=== PATIENT | female | born 1995 | race Caucasian/White ===

== ENCOUNTER 2020-04-28 19:40 | Emergency (ER) | payer OTHER, SELFPAY ==
[2020-04-28 19:42] VITALS: BP 119/75; PULSE 98; RESP 12; TEMP 36.8; O2SAT 98
--- NOTE | 2020-04-28 20:09 | ED.GENADULT ---
HPI - General Adult General Chief complaint: Unspecified Stated complaint: pelvic pain after a plan B Time Seen by Provider: 04/28/20 19:56 History of Present Illness HPI narrative: She had a medication induced 3 weeks ago. Following that she had vaginal bleeding for about 1 week. She also had cramping which continues to happen. Then vaginal dryness and pain. Now fr the past few days she has begun having a small amount of abnormal discharge. No fever. Related Data Allergies Allergy/AdvReac Type Severity Reaction Status Date / Time No Known Allergies Allergy Unknown Verified 04/28/20 19:45 Review of Systems Review of Systems: All systems reviewed & are unremarkable except as noted in HPI and below Constitutional: Constitutional: Denies fever(s) Cardiovascular: Cardiovascular: Denies chest pain Respiratory: Respiratory: Denies dyspnea Gastrointestinal: Gastrointestinal: Reports abdominal pain, Denies constipation, Denies diarrhea, Denies nausea and Denies vomiting Genitourinary: Genitourinary: Denies hematuria and Denies dysuria [facility] Past Medical History Medical History (Updated 04/29/20 @ 00:26 by Serafin Everett MD) Medical Social History Social History (Updated 04/29/20 @ 00:26 by Serafin Everett MD) Smoking status: Never smoker Gender identity (if verbalized by the patient): Female Exam Const: General: healthy appearing, no acute distress and alert Orientation/consciousness: patient oriented x3 HENMT: Head: normal to inspection Resp: Effort & Inspection: normal respiratory effort Auscultation: clear to auscultation bilaterally Cardio: Rate: regular rate Rhythm: regular rhythm GI: GI Palp: Yes Soft to palpation and No Tenderness to palpation present (GI) : Speculum Exam - Vagina: normal appearance of the vagina, abnormal vaginal discharge palacios and No vaginal bleeding Speculum Exam - Cervix: normal appearance of the cervix Bimanual exam- vagina & uterus: no cervical motion tenderness Skin: General skin exam: normal color Neuro: General: patient oriented x3 and moves all extremities Speech: normal speech Gait exam (Neuro): Normal gait present Extrem: General: normal to inspection Course Vital Signs Vital signs: Vital Signs Temperature 36.8 C 04/28/20 19:42 Pulse Rate 98 04/28/20 19:42 Respiratory Rate 12 04/28/20 19:42 Blood Pressure 119/75 04/28/20 19:42 Pulse Oximetry 98 04/28/20 19:42 Temperature 36.9 C 04/28/20 20:31 Pulse Rate 90 04/28/20 21:42 Respiratory Rate 16 04/28/20 21:42 Blood Pressure 131/87 04/28/20 21:42 Pulse Oximetry 100 04/28/20 21:42 Medical Decision Making MDM Narrative Medical decision making narrative: She has a small amount of palacios discharge. I will test and treat her for STDs. Mild elevation of bHcg. Case discussed with Dr. Sandoval. She can follow-up her in clinic. Medical Records Medical records reviewed: Yes I reviewed the patient's medical records. Vital Signs Vital Signs: Vital Signs Temperature 36.8 C 04/28/20 19:42 Pulse Rate 98 04/28/20 19:42 Respiratory Rate 12 04/28/20 19:42 Blood Pressure 119/75 04/28/20 19:42 Pulse Oximetry 98 04/28/20 19:42 Temperature 36.9 C 04/28/20 20:31 Pulse Rate 90 04/28/20 21:42 Respiratory Rate 16 04/28/20 21:42 Blood Pressure 131/87 04/28/20 21:42 Pulse Oximetry 100 04/28/20 21:42 Lab Data Lab results reviewed: Yes I reviewed the patient's lab results. Result diagrams: 04/28/20 20:14 04/28/20 20:14 Labs: Lab Results 04/28/20 04/28/20 04/28/20 Range/Units 20:14 20:14 20:42 WBC 8.0 (4.5-10.0) K/mm3 RBC 4.35 (4.2-5.4) M/mm3 Hgb 13.5 (12.0-15.0) g/dL Hct 40.3 (37.0-47.0) % MCV 92.6 (80-100) fl MCH 31.0 (26-34) pg MCHC 33.5 (32-36) g/dl RDW 12.5 (11.5-14.5) % Plt Count 361 (150-375) k/mm3 MPV 8.6 (7.4-10.4) fl Immature G
[2020-04-28 20:21] LABS: Basophils Percent Auto 0.5 % (0.2-1.2); Eosinophils Absolute Auto 0.1 K/mm3 (0-0.3); Eosinophils Percent Auto 1.8 % (0-4.4); Hematocrit 40.3 % (37.0-47.0); Hemoglobin 13.5 g/dL (12.0-15.0); Immature Granulocyte Absolute 0.01 K/mm3 (0.00-0.031); Immature Granulocyte Percent A 0.1 % (0-0.5); Lymphocytes Absolute Auto 2.66 K/mm3 (0.9-3.2); Lymphocytes Percent Auto 33.3 % (18.3-44.2); Mean Corpuscular HGB Conc 33.5 g/dl (32-36); Mean Corpuscular Volume 92.6 fl (80-100); Mean Platelet Volume 8.6 fl (7.4-10.4); Monocytes Absolute Auto 0.6 K/mm3 (0.1-0.6); Monocytes Percent Auto 7.1 % (2.6-8.5); Neutrophils Absolute Auto 4.6 K/mm3 (1.3-6.7); Neutrophils Percent Auto 57.2 % (45.5-73.1); Platelet Count Result 361 k/mm3 (150-375); Red Blood Count 4.35 M/mm3 (4.2-5.4); Red Cell Distribution Width 12.5 % (11.5-14.5)
[2020-04-28 20:31] VITALS: BP 129/94; PULSE 98; RESP 20; TEMP 36.9; O2SAT 97
[2020-04-28 20:33] LABS: Alanine Aminotransferase 14 U/L (4-35); Albumin Level 4.6 g/dL (3.5-5.1); Alkaline Phosphatase 75 U/L (38-126); Anion Gap 10 mmol/L (8-16); Aspartate Amino Transferase 18 U/L (14-36); Bilirubin,Total 1.2 mg/dL (0.2-1.3); Blood Urea Nitrogen 5 mg/dL (7-17); Carbon Dioxide 25 mmol/L (22-30); Chloride 102 mmol/L (98-107); Estimated Glomerular Filt Rate > 60; Glucose 93 mg/dL (65-105); Potassium 3.9 mmol/L (3.4-5.0); Sodium 137 mmol/L (137-145)
[2020-04-28 20:50] LABS: Add Urine Microscopic? NO; Appearance Urine Clear (Clear); Bilirubin Urine Negative (Negative); Blood Urine Negative (Negative); Color Urine Straw (Yellow); Glucose Urine UA Negative (Negative); Ketones Urine Negative (Negative); Leukocyte Esterase Ur Negative LEU/UL (Negative); Nitrate Urine Negative (Negative); Protein Urine Negative (Negative); Urobilinogen Urine Negative mg/dL (<2.0)
[2020-04-28 20:51] LABS: Beta HCG Quantitative 240.72 mIU/ML
[2020-04-28] MEDS: cefTRIAXone 250 MG VIAL IM (21:40)
[2020-04-28] MEDS: AZITHROMYCIN 250 MG TABLET 1000 MG PO (21:40)
[2020-04-28] MEDS: metroNIDAZOLE 250 MG TABLET 2000 MG PO (21:41)
--- NOTE | 2020-04-28 21:41 | PC.NURSE ---
used lido to reconstitute rocephin
[2020-04-28 21:42] VITALS: BP 131/87; PULSE 90; RESP 16; O2SAT 100
== END 2020-04-28 21:44 | disposition home or self-care (01) ==
PROVIDERS: Emergency Provider Emergency Medicine
DX: R10.2 Pelvic and perineal pain (principal); N89.8 Other specified noninflammatory disorders of vagina
CPT/HCPCS: 36415; 80053; 81003; 81025; 84702; 85025; 86850; 86880; 86900; 86901; 86902; 87491; 87591; 87808; 96372; 99284; A9270; J0696

== ENCOUNTER 2021-02-23 12:49 | Outpatient (RCR) | payer OTHER, SELFPAY ==
[2021-02-23 14:16] LABS: Hematocrit 33.1 % (37.0-47.0); Hemoglobin 10.7 g/dL (12.0-15.0)
[2021-02-23 14:28] LABS: Glucose 1 Hour PP 50gm Dose 85 mg/dL
[2021-02-23 15:08] LABS: HIV 1/2 Ab P24 Ag Result Negative (Negative)
[2021-02-25] MEDS: RHO(D) IMMUNE GLOBULIN 300 MCG/2 ML SYRINGE IM (14:31)
== END 2021-05-24 23:59 | disposition home or self-care (01) ==
LOC: ANHLAB 12:49
PROVIDERS: Visit Provider Obstetrics & Gynecology
DX: Z11.4 Encounter for screening for human immunodeficiency virus [HIV] (principal); Z29.13 Encounter for prophylactic Rho(D) immune globulin; O36.0120 Maternal care for anti-D [Rh] antibodies, second trimester, not applicable or unspecified; Z3A.00 Weeks of gestation of pregnancy not specified
CPT/HCPCS: 36415; 82947; 85014; 85018; 85461; 86703; 90384; 96372; G0432; J2790

== ENCOUNTER 2021-05-01 16:35 | Observation (INO) | payer OTHER, SELFPAY ==
[2021-05-01 17:00] VITALS: TEMP 36.6
--- NOTE | 2021-05-02 08:42 | PM.OBTRLD ---
OB - Triage/Final Diagnosis Visit Information Comments/Additional reasons for admission: I have assessed the risk for this patient, Digan Evangelista Salguero, and determined that she would benefit from observation care. Evaluation Vital signs: Vital Signs - 24 hr 05/01/21 17:00 Temperature 36.6 C Final Diagnosis (1) Back pain affecting : Code(s): O99.891 - Other specified diseases and conditions complicating ; M54.9 - Dorsalgia, unspecified Status: Acute
== END 2021-05-01 18:00 | disposition home or self-care (01) ==
PROVIDERS: Admitting Provider Obstetrics & Gynecology; Visit Provider Obstetrics & Gynecology
DX: O99.891 Other specified diseases and conditions complicating pregnancy (principal); M54.9 Dorsalgia, unspecified; Z3A.00 Weeks of gestation of pregnancy not specified
CPT/HCPCS: G0378; G0379

== ENCOUNTER 2021-05-03 16:43 | Inpatient (IN) | payer OTHER, SELFPAY ==
[2021-05-03] VITALS (7 sets, daily range): BP systolic 101–110; BP diastolic 72–77; PULSE 86–103; RESP 18; TEMP 36.4–36.8; BMI 33.0
--- NOTE | 2021-05-03 17:02 | LDADM ---
This patient, Digna Salguero, was admitted to Labor/Delivery/Recovery 108 on 05/03/21 at 16:43. Plans for labor, pain management and were discussed with patient. Patient/family oriented to hospital policies and general routines including ID bracelet, bed and alarms, visiting hours, pain management, procedures, bathroom and other care routines, personal items, smoking policy, room service/diet and guest tray routines, security routines, and visiting hours. Patient/Family are encouraged to report perceived risks to care and to ask questions if they do not understand what they are told or what they should do. See OBIX for further documentation.
[2021-05-03 17:14] LABS: Basophils Percent Auto 0.2 % (0.2-1.2); Eosinophils Absolute Auto 0.1 K/mm3 (0-0.3); Eosinophils Percent Auto 0.6 % (0-4.4); Hematocrit 31.5 % (37.0-47.0); Hemoglobin 9.9 g/dL (12.0-15.0); Immature Granulocyte Absolute 0.03 K/mm3 (0.00-0.031); Immature Granulocyte Percent A 0.3 % (0-0.5); Lymphocytes Absolute Auto 1.95 K/mm3 (0.9-3.2); Lymphocytes Percent Auto 20.1 % (18.3-44.2); Mean Corpuscular HGB Conc 31.4 g/dl (32-36); Mean Corpuscular Hemoglobin 26.4 pg (26-34); Mean Platelet Volume 9.8 fl (7.4-10.4); Monocytes Absolute Auto 0.6 K/mm3 (0.1-0.6); Neutrophils Absolute Auto 7.1 K/mm3 (1.3-6.7); Neutrophils Percent Auto 72.8 % (45.5-73.1); Platelet Count Result 315 k/mm3 (150-375); Red Blood Count 3.75 M/mm3 (4.2-5.4); Red Cell Distribution Width 13.6 % (11.5-14.5); White Blood Count 9.7 K/mm3 (4.5-10.0)
[2021-05-03] MEDS: DINOPROSTONE 10 MG VAG INSERT VAGINAL (17:34)
[2021-05-03] MEDS: fentaNYL CITRATE INJ (*CRX) 100 MCG/2 ML VIAL 50 MCG IV PUSH (22:39)
[2021-05-04] VITALS (125 sets, daily range): BP systolic 85–129; BP diastolic 50–104; PULSE 66–167; RESP 16–18; TEMP 36.1–37.1; O2SAT 87–100
[2021-05-04] MEDS: ONDANSETRON INJ 4 MG/2 ML VIAL IV PUSH (02:34)
[2021-05-04] MEDS: ACETAMINOPHEN 500 MG TABLET 1000 MG PO ×2 (02:37→09:29)
[2021-05-04] MEDS: OXYTOCIN 30 UNITS/NS 500 ML 30 UNITS/500 ML BAG IV CONT (04:55)
[2021-05-04] MEDS: LACTATED RINGERS 1,000 ML 125 ML IV CONT ×2 (04:55→07:16)
--- NOTE | 2021-05-04 06:52 | WPDANESEPPF ---
Anes - Initial Pre Proc Eval Procedure: labor epidural Date/Time: 05/04/21 06:52 Surgeon: Parish Ocampo MD Pre Op Diagnosis: labor pain Pre Op Diagnosis: Induction of Labor Patient Data Age: 25 Gender: F Height: 1.57 m Weight: 82 kg Last Vital Signs Temp 36.5 C 05/04/21 04:55 Pulse 81 05/04/21 06:52 Resp 18 05/04/21 04:55 BP 110/69 05/04/21 06:52 Pulse Ox 100 05/04/21 06:50 Allergies Allergy/AdvReac Type Severity Reaction Status Date / Time No Known Allergies Allergy Unknown Verified 04/28/20 19:45 Home Medications Medication Instructions Recorded Confirmed Type PNV cmb#95-ferrous fumarate-FA 1 tablet PO DAILY 04/07/21 05/03/21 History [] Laboratory Tests 05/03/21 05/03/21 05/03/21 17:00 17:00 17:00 WBC 9.7 K/mm3 K/mm3 (4.5-10.0) RBC 3.75 M/mm3 L M/mm3 (4.2-5.4) Hgb 9.9 g/dL L g/dL (12.0-15.0) Hct 31.5 % L % (37.0-47.0) MCV 84.0 fl fl (80-100) MCH 26.4 pg pg (26-34) MCHC 31.4 g/dl L g/dl (32-36) RDW 13.6 % % (11.5-14.5) Plt Count 315 k/mm3 k/mm3 (150-375) MPV 9.8 fl fl (7.4-10.4) Immature Gran % (Auto) 0.3 % % (0-0.5) Neut % (Auto) 72.8 % % (45.5-73.1) Lymph % (Auto) 20.1 % % (18.3-44.2) Lane % (Auto) 6.0 % % (2.6-8.5) Eos % (Auto) 0.6 % % (0-4.4) Baso % (Auto) 0.2 % % (0.2-1.2) Lymph # (Auto) 1.95 K/mm3 K/mm3 (0.9-3.2) Lane # (Auto) 0.6 K/mm3 K/mm3 (0.1-0.6) Eos # (Auto) 0.1 K/mm3 K/mm3 (0-0.3) Baso # (Auto) 0.0 K/mm3 K/mm3 (0.0-0.1) Abs Immat Gran (auto) 0.03 K/mm3 K/mm3 (0.00-0.031) Absolute Neuts (auto) 7.1 K/mm3 H K/mm3 (1.3-6.7) Absolute Nucleated RBC 0.0 K/mm3 K/mm3 (0.0-0.012) Nucleated RBC % 0.0 % % (0.0-0.2) RPR Pending Blood Type B Negative Antibody Screen Positive Antibody Identification Passive Due to RH Imm Glob Antigen Identification Cancelled SERGIO, IgG Interpret Not Performed SERGIO, Poly Interpret Negative SERGIO, Complement Interp Not Performed Patient hx anesthesia problems: none Family hx anesthesia problems: none PMFSH Past Medical History Medical History Medical Family History Family History Other No pertinent family history Social History Social History Smoking status: Never smoker Substance use: never Gender identity (if verbalized by the patient): Female Spiritual care concerns: No Anes - Eval Final PreProcedure Day of Procedure 05/04/21 06:52 Patient weight: overweight Heart: regular rate and rhythm Lungs: clear to auscultation and normal air movement Airway: Mallampati scale class II Neurological: alert and oriented ASA classification: II Emergent: no Anesthetic plan: proceed Anesthesia type and monitoring: regional epidural and standard monitoring Informed Consent: The patient's anesthetic plan and its attendant risks and benefits were discussed with the patient/family/POA. Questions were solicited and answers provided to the satisfaction of the patient/family/POA.
[2021-05-04 11:20] LABS: Rapid Plasma Reagin Non-Reactive (NonReactive)
--- NOTE | 2021-05-04 13:08 | WPDHPUPDATE1 ---
History and Physical Update Update Date/Time: 05/04/21 13:08 History and Physical has been reviewed, including an updated exam of the patient. There are NO changes in the patient's condition. Risks, benefits, and alternatives have been discussed and questions answered. Patient agrees to proceed with procedure.
--- NOTE | 2021-05-04 13:08 | WPDOBADMIT ---
Obstetrics - Admit Note Admission Note: record reviewed. No pertinent additions to the history and/or any subsequent changes in the physical findings that are not consistent with the expected course of the were found. Additions to the history and/or subsequent changes in the physical findings follow. None.
--- NOTE | 2021-05-04 13:08 | PM.OBPRVD ---
OB - Delivery Note Procedure Route of delivery: Episiotomy description: None Laceration Description: None Specimen: No Quantitative Blood Loss (ml): 300 Anesthesia type: Epidural Disposition: floor Narrative: Patient prepped and draped in usual manner for this procedure. Maternal expulsive efforts readily delivered vertex and the rest of baby delivered without difficulty. Cord was clamped cut placenta delivered spontaneously. Cervix vagina vulva were inspected no lacerations or tears. Uterus was well contracted no bleeding patient are procedure well. Immediate postop condition mother baby were both excellent. Baby Weeks of gestation at delivery: 39 Infant gender: Female Weight (pounds): 7 Weight (ounces): 10 score one minute: 8 score five minutes: 9
[2021-05-04] MEDS: OXYTOCIN 30 UNITS/NS 500 ML 30 UNITS/500 ML BAG 125 UNITS IV CONT (13:32)
--- NOTE | 2021-05-04 15:42 | OBPPTRN ---
Patient transferred to post room # 282 via wheelchair. Support person present. Oriented to unit, room, information board, rooming in, admission packet and security measures. Patient verbalizes understanding.
[2021-05-04] MEDS: ACETAMINOPHEN 325 MG TABLET 650 MG PO (17:41)
[2021-05-04] MEDS: IBUPROFEN 600 MG TABLET PO (23:10)
[2021-05-05 05:25] LABS: Hematocrit 28.8 % (37.0-47.0); Hemoglobin 8.8 g/dL (12.0-15.0)
[2021-05-05] MEDS: IBUPROFEN 600 MG TABLET PO (07:21)
[2021-05-05] MEDS: DOCUSATE SODIUM 100 MG CAPSULE PO (07:21)
[2021-05-05] MEDS: POLYSACCHARIDE IRON COMPLEX 150 MG CAPSULE PO (07:21)
[2021-05-05] MEDS: ACETAMINOPHEN 325 MG TABLET 650 MG PO (07:22)
[2021-05-05] MEDS: TETANUS,DIPHTHERIA,AC PERTUSSIS ADULT (0.5 ML) BOOSTRIX IM (07:22)
[2021-05-05 08:30] VITALS: BP 93/62; PULSE 73; RESP 16; TEMP 36.3; O2SAT 98
--- NOTE | 2021-05-05 09:47 | WPDANLDPN2 ---
Anes-Prog Note L&D Date/Time: 05/05/21 09:47 Comfortable throughout: labor and delivery Neuraxial method: epidural Epidural/Spinal procedure site: clean & non-tender Neuro status: Neuro function grossly intact. Cardiovascular status: normal Respiratory status: normal Airway patency: baseline Mental status: baseline Post-Op hydration status: normal Vital Signs: Last Vital Signs Temp 36.3 C L 05/05/21 08:30 Pulse 73 05/05/21 08:30 Resp 16 05/05/21 08:30 BP 93/62 L 05/05/21 08:30 Pulse Ox 98 05/05/21 08:30 Pain score (VAS): 3 Post-procedural complaints: none Patient feedback: Patient satisfied with anesthetic care.
[2021-05-05 11:43] VITALS: BP 96/65; PULSE 94; RESP 18; TEMP 36.8; O2SAT 100
[2021-05-05] MEDS: RHO(D) IMMUNE GLOBULIN 300 MCG/2 ML SYRINGE IM (13:33)
--- NOTE | 2021-05-05 13:53 | P.DS_ITS ---
DS: Admitting Diagnosis Admitting Diagnosis OB - DS: Summary OB Procedures : None OB Procedures Intrapartum: Spontaneous Vag Delivery OB Procedures: : None Time Spent with Patient Time attestation: Total time spent providing and/or coordinating discharge services: DS: Data Data Completed and Pending Labs on day of discharge: Labs from last 24 hours 05/05/21 05/05/21 03:16 03:16 Hgb 8.8 L Hct 28.8 L Blood Type B Negative Antibody Screen TNP Screen Negative Baby's Blood Type B pos Baby's SERGIO Negative Doses of RhIg Required 1 Discharge Plan Discharge Discharging Clinician: Parish Ocampo Patient Disposition: Home, Self-Care Activity: as tolerated Diet: as tolerated Patient Instructions: Antibiotic Form Stand Alone Forms: General Discharge Information Follow-up/Referrals: Parish Ocampo MD [Physician] - 3 Weeks Discharge Medications: New ibuprofen 600 mg Tablet 600 mg PO Q6H PRN (Reason: Cramping) Qty: 30 RF: 0 Continued PNV cmb#95-ferrous fumarate-FA [] 28 mg iron- 800 mcg Tablet 1 tablet PO DAILY RF: 0 Date of admission: 05/03/21 16:43 Primary Care Provider: PHYSICIAN,ADDRESS CHANGE CLERK Admitting Provider: Parish Ocampo Attending physician on admission: Parish Ocampo Condition: Stable
[2021-05-06 10:21] VITALS: BP 109/69; PULSE 93; RESP 18; O2SAT 99
== END 2021-05-05 14:46 | disposition home or self-care (01) | DRG 560 ==
LOC: ANHLDR 05-04 15:39 → ANHOB2 05-04 15:46
PROVIDERS: Admitting Provider Obstetrics & Gynecology; Visit Provider Obstetrics & Gynecology
DX: O80 Encounter for full-term uncomplicated delivery (principal); Z37.0 Single live birth; Z3A.39 39 weeks gestation of pregnancy
CPT/HCPCS: 36415; 85014; 85018; 85025; 85461; 86592; 86850; 86880; 86900; 86901; 90384; 90715; A9270; J2405; J2590; J2790; J2795; J3010; J7120

== ENCOUNTER 2023-08-29 12:14 | Outpatient (CLI) | payer OTHER, SELFPAY ==
[2023-08-29 12:30] LABS: Basophils Percent Auto 0.4 % (0.2-1.2); Eosinophils Absolute Auto 0.1 K/mm3 (0-0.3); Eosinophils Percent Auto 2.1 % (0-4.4); Hematocrit 36.4 % (37.0-47.0); Hemoglobin 11.3 g/dL (12.0-15.0); Immature Granulocyte Absolute 0.01 K/mm3 (0.00-0.031); Immature Granulocyte Percent A 0.1 % (0-0.5); Lymphocytes Absolute Auto 2.54 K/mm3 (0.9-3.2); Lymphocytes Percent Auto 37.5 % (18.3-44.2); Mean Corpuscular Volume 80.5 fl (80-100); Mean Platelet Volume 8.3 fl (7.4-10.4); Monocytes Absolute Auto 0.4 K/mm3 (0.1-0.6); Monocytes Percent Auto 6.1 % (2.6-8.5); Neutrophils Absolute Auto 3.6 K/mm3 (1.3-6.7); Neutrophils Percent Auto 53.8 % (45.5-73.1); Platelet Count Result 398 k/mm3 (150-375); Red Blood Count 4.52 M/mm3 (4.2-5.4); Red Cell Distribution Width 16.2 % (11.5-14.5); White Blood Count 6.8 K/mm3 (4.5-10.0)
[2023-08-29 17:04] LABS: Iron 40 ug/dL (37-170)
[2023-08-29 17:11] LABS: Alanine Aminotransferase 128 U/L (6-35); Albumin Level 4.8 g/dL (3.5-5.1); Alkaline Phosphatase 131 U/L (38-126); Anion Gap 9 mmol/L (8-16); Aspartate Amino Transferase 79 U/L (14-36); Bilirubin,Total 0.9 mg/dL (0.2-1.3); Blood Urea Nitrogen 6 mg/dL (7-17); Calcium 9.7 mg/dL (8.4-10.2); Carbon Dioxide 28 mmol/L (22-30); Chloride 103 mmol/L (98-107); Estimated Glomerular Filt Rate > 60; Glucose 88 mg/dL (65-110); Lactate Dehydrogenase 210 U/L (120-246); Potassium 4.2 mmol/L (3.4-5.0); Sodium 140 mmol/L (137-145)
[2023-08-29 17:13] LABS: Percent Iron Saturation 8 % (20-50)
[2023-08-29 17:43] LABS: Ferritin 4.62 ng/mL (6.24-137)
[2023-08-29 18:18] LABS: Folic Acid 9.3 ng/mL (2.76->20)
[2023-09-01 06:43] LABS: Methylmalonic Acid 70 nmol/L (87-318)
[2023-09-04 09:53] LABS: Soluble Transferrin Receptor 1.98 mg/L (0.76-1.76)
== END 2023-08-29 12:15 | disposition home or self-care (01) ==
LOC: ANHLAB 12:15
PROVIDERS: Nurse Practitioner Family; Visit Provider Internal Medicine Hematology & Oncology
DX: D50.0 Iron deficiency anemia secondary to blood loss (chronic) (principal)
CPT/HCPCS: 36415; 80053; 82607; 82728; 82746; 83540; 83550; 83615; 83921; 84238; 85025

== ENCOUNTER 2023-10-24 00:27 | Day surgery (SDC) | payer OTHER, SELFPAY ==
[2023-10-12 15:27] VITALS: BMI 34.2
--- NOTE | 2023-10-12 15:35 | PC.NURSE ---
Report to the Outpatient Waiting Room, entrance under the green pavilion located off [facility], at time ___07____ on date __10/24/23 . Planned Procedure Time: ___09 . Time changes happen often and if your time is changed the preop area will call you the afternoon before. - You and your visitor will be asked to self-screen and do not enter if you have any COVID symptoms. - A mask is optional within the hospital at this time. Patients may have clear liquids (water, carbonated beverages, clear teas, apple juice) until 3 hours prior to surgery (0600 AM) with a maximum of 20 ounces. - No food from midnight until time of surgery - Infants may have breast milk until 4 hours before surgery, infant formula 6 hours prior to surgery. - Children will be allowed to drink immediately following surgery. If applicable, please bring a bottle or sippy cup to assist with drinking. Juice, water, soda, and popsicles are readily available. For infants on formula, please bring formula the day of surgery. Pacifiers are allowed. Take the following medications with a SIP of water the morning of surgery: NONE DO NOT STOP ANY OF YOUR OTHER PRESCRIPTION MEDICATIONS PRIOR TO SURGERY ?EXCEPT THE FOLLOWING Medications to discontinue per physician _CALL DR. DEL VALLE'S OFFICE REGARDING IBUPROFEN Date to take last dose Please no make-up, nail italian, hairspray, perfume, deodorant, or body powder the day of surgery. No jewelry (including any body piercings) or valuables the day of surgery, leave them at home. Please take a shower or bath the night before, or the morning of, surgery with an antibacterial soap. Wear comfortable, loose fitting clothing. Children are encouraged to wear pajamas. - Jewelry must be removed prior to entering the operating room. Rings and piercings that are not removed may be cut off. - The hospital will not accept responsibility for valuables. - Please leave all valuables, including medications, at home the day of surgery. If you are going home after surgery, a licensed stage driver must drive you home. - NO public transportation without another adult if you receive anesthesia. - We recommend that an adult stay with you for 24 hours following discharge. - We also recommend that you do not drive, make important decision, drink alcoholic beverages, or take any drugs that were not prescribed by your health care provider for at least 24 hours after your discharge time. For Pediatric surgeries, we recommend two adults accompany the child home. Follow any additional instructions given to you from your surgeon. If you or anyone in your household have experienced Covid symptoms in the past week, please notify your surgeon or the nurse liaison at the phone number below for possible testing. Telephone instructions given to ____PT and asked if any additional questions and then verbalized understanding. Patient advised to call surgeon office or pre surgery nurse liaison [phone] if any additional questions.
[2023-10-24] VITALS (10 sets, daily range): BP systolic 84–112; BP diastolic 60–79; PULSE 67–98; RESP 14–20; TEMP 36.5–36.6; O2SAT 97–100
[2023-10-24] MEDS: LACTATED RINGERS 1,000 ML 30 ML IV CONT (07:20)
--- NOTE | 2023-10-24 08:23 | P.PNAN_ITS ---
Anes - Initial Pre Proc Eval Procedure: Operation Date: 10/24/23 09:00 Proposed Procedures p Excision of Vulva Lesion - Dino Thomas MD Date/Time: 10/24/23 08:23 Surgeon: Dino Thomas MD Pre Op Diagnosis: mass of vulva Patient Data Age: 28 Gender: F Height: 1.57 m Weight: 82.85 kg Last Vital Signs Temp 36.5 C 10/24/23 07:00 Pulse 92 10/24/23 07:00 Resp 16 10/24/23 07:00 BP 109/75 10/24/23 07:00 Pulse Ox 100 10/24/23 07:00 O2 Del Method Room Air 10/24/23 07:00 Allergies Allergy/AdvReac Type Severity Reaction Status Date / Time No Known Allergies Allergy Unknown Verified 10/24/23 07:25 Home Medications Medication Instructions Recorded Confirmed Type cyanocobalamin (vitamin B-12) 1 cap DAILY 10/12/23 10/24/23 History ferrous sulfate 325 mg (65 mg 65 mg DAILY 10/12/23 10/24/23 History iron) tablet (FeroSul) ibuprofen 600 mg tablet 600 mg PO Q6H PRN Pain 10/12/23 10/24/23 History Patient hx anesthesia problems: none Family hx anesthesia problems: none Results Review: All pre-operative results and documents have been reviewed as part of the pre- operative evaluation. [facility] Past Medical History Medical History (Updated 10/24/23 @ 08:24 by Syed Tello MD) Medical Obesity Family History Family History Other No pertinent family history Social History Social History Smoking status: Never smoker Second hand tobacco smoke exposure: No Alcohol intake: never Substance use: never Substance use type: does not use Living arrangements: with family Gender identity (if verbalized by the patient): Female Spiritual care concerns: No Anes - Eval Final PreProcedure Day of Procedure 10/24/23 08:23 Patient weight: obese Heart: regular rate and rhythm Lungs: clear to auscultation Airway: Mallampati scale class II Neurological: alert and oriented Last oral intake: >/= 8 hours ASA classification: II Emergent: no Anesthetic plan: proceed Anesthesia type and monitoring: general GIVS and standard monitoring Results Review: All pre-operative results and documents have been reviewed as part of the pre- operative evaluation. Informed Consent: The patient's anesthetic plan and its attendant risks and benefits were discussed with the patient/family/POA. Questions were solicited and answers provided to the satisfaction of the patient/family/POA.
--- NOTE | 2023-10-24 08:40 | PM.IMHP ---
H&P: HPI History of Present Illness Date/Time: 10/24/23 08:40 Chief Complaint: vulvar mass Narrative: this patient is a 28-year-old female with a vulvar mass. We have agreed to perform excision of vulvar mass. She understands the procedure. Has been explained to her in detail. She understands there is risk of injury. She understands that injuries may occur dulled hospitalization, more surgery, and severe illness. She understands risk of hemorrhage infection. she denies any chest pain shortness of breath. She denies any nausea, vomiting, fever, chills. Review of Systems Review of Systems: All systems reviewed & are unremarkable except as noted in HPI and below Constitutional: Constitutional: Denies chills, Denies fatigue, Denies fever(s) and Denies weakness Eyes: Eyes: Denies blurry vision, Denies change in vision, Denies loss of peripheral vision, Denies loss of vision, Denies other visual disturbances and Denies eye pain ENT: Denies vertigo, Denies dizziness, Denies hearing loss, Denies mouth pain, Denies nasal obstruction, Denies neck mass and Denies neck pain Cardiovascular: Cardiovascular: Denies chest pain, Denies diaphoresis, Denies syncope, Denies leg edema and Denies dyspnea Respiratory: Respiratory: Denies chest congestion, Denies cough, Denies hemoptysis, Denies dyspnea and Denies wheezing Gastrointestinal: Gastrointestinal: Denies abdominal pain, Denies constipation, Denies diarrhea, Denies nausea and Denies vomiting Genitourinary: Genitourinary: Denies hematuria, Denies change in libido, Denies nocturia, Denies genital lesions, Denies flank pain and Denies urinary urgency Musculoskeletal: Musculoskeletal: Denies abnormal gait, Denies back pain, Denies myalgias, Denies arthralgias, Denies joint swelling, Denies muscle weakness and Denies neck pain Integumentary/Breasts: Skin/Breast: Denies swelling, Denies breast pain, Denies breast mass, Denies dry skin, Denies nipple discharge, Denies unusual bruising and Denies jaundice Neurologic: Denies Neuro-related abnormal movements, Denies Abnormal speech present, Denies abnormal gait, Denies behavioral changes, Denies confusion, Denies vertigo, Denies dizziness, Denies syncope, Denies loss of vision, Denies memory loss, Denies convulsions and Denies weakness Psychiatric: Psychiatric: Denies abnormal sleep pattern, Denies behavioral changes, Denies change in libido, Denies confusion, Denies depression, Denies anhedonia and Denies memory loss Endocrine: Endocrine: Reports no additional endocrine complaints, Denies change in libido and Denies fatigue Hematologic/Lymphatic: Hematologic/Lymphatic: Reports no additional hematologic/lymphatic complaints Allergic/Immunologic: Allergic/Immunologic: Reports no additional allergic/immunologic complaints and Denies wheezing PMFSH Past Medical History Medical History (Updated 10/24/23 @ 08:41 by Dino Thomas MD) Medical Obesity Family History Family History Other No pertinent family history Social History Social History Smoking status: Never smoker Second hand tobacco smoke exposure: No Alcohol intake: never Substance use: never Substance use type: does not use Living arrangements: with family Gender identity (if verbalized by the patient): Female Spiritual care concerns: No Meds Home Medications and Allergies Home Medications Medication Instructions Recorded Confirmed Type cyanocobalamin (vitamin B-12) 1 cap DAILY 10/12/23 10/24/23 History ferrous sulfate 325 mg (65 mg 65 mg DAILY 10/12/23 10/24/23 History iron) tablet (FeroSul) ibuprofen 600 mg tablet 600 mg PO Q6H PRN Pain 10/12/23 10/24/23 History Allergies Allergy/AdvReac Type Severity Reaction Status Date / Time No Known Allergies Allergy Unknown Verified 10/24/23 07:25 Vital Signs Vital Signs - 24 hr
--- NOTE | 2023-10-24 08:42 | WPDHPUPDATE1 ---
History and Physical Update Update Date/Time: 10/24/23 08:42 History and Physical has been reviewed, including an updated exam of the patient. There are NO changes in the patient's condition. Risks, benefits, and alternatives have been discussed and questions answered. Patient agrees to proceed with procedure.
[2023-10-24] MEDS: LIDO 1%/EPINEPHRINE 1:100,000 50 ML VIAL 10 ML INFILTRATE (09:15)
--- NOTE | 2023-10-24 09:59 | W.PM.PROC2 ---
Procedure Note - Detailed Date of Procedure 10/24/23 Pre-op Diagnosis mass of vulva Post-op Diagnosis Same Procedure Performed Excision of vulvar mass Surgeon Dino Thomas MD Anesthesia MAC Indications vulvar pain Findings 3 cm vulvar lesion on the right labia minora. Cystic lesion Description of Procedure the patient is taken to the operating room. She was prepped and draped in dorsal lithotomy position after induction of MAC anesthesia. Elliptical incision was made around the vulvar mass. The mass was at the anterior portion of the labia minora on the right side. Using blunt and sharp dissection done around the vulvar lesion it was freed from the vulva. There was minimal bleeding. Cautery was used to make hemostatic. A subcutaneous layer of suture was placed in a running fashion. It was 3-0 Vicryl. The skin was closed with interrupted 3-0 Vicryl sh. The patient tolerated the procedure well. She was take over stable condition. Sponge lap and needle counts were correct x2. Estimated Blood Loss 15 Pathology Yes Complications No immediate complications
[2023-10-24] MEDS: oxyCODONE HCL (*CRX) 5 MG TAB IR PO (10:46)
== END 2023-10-24 11:28 | disposition home or self-care (01) ==
PROVIDERS: Visit Provider Obstetrics & Gynecology
PROC: (CPT 56740; principal; 2023-10-24 09:00)
DX: N75.0 Cyst of Bartholin's gland (principal); N90.89 Other specified noninflammatory disorders of vulva and perineum; E66.9 Obesity, unspecified; Z68.33 Body mass index [BMI] 33.0-33.9, adult
CPT/HCPCS: 56740; 88304; A9270; J1100; J1885; J2250; J2405; J2704; J3010; J7120